=== PATIENT | female | born 1975 | race Caucasian/White ===

== ENCOUNTER 2017-02-15 14:47 | Emergency (ER) | payer BC ==
[~2017-02-15] VITALS: Ht 152.4 cm; Wt 55.3 kg
[~2017-02-15 14:47] MED LIST: IBUP-1050 PO; PRENTAB26 PO
[2017-02-15 14:52] VITALS: Ht 152.4 cm; Wt 55.3 kg
--- NOTE | 2017-02-15 17:48 | EMERGENCY ROOM VISIT NOTE ---
History First contact with patient: 16:47 Chief Complaint: ED VAG BLEEDING Stated Complaint: HEAVY BLEEDING History of Present Illness The patient is a 42 year old female who presents to the Emergency Room with complaints of heavy vaginal bleeding that started around 12 PM today. Patient states that she soaked through 8 pads in approximately 30 minutes. She stated that the bleeding seemed to slow down for a little bit, but then started to become heavy again, so she decided come to the emergency department to be evaluated. She denies any abdominal pain or cramping, back pain, fevers or chills, nausea, vomiting, diarrhea, dysuria or urinary frequency. Patient reports that she took pills to have a medical on 01/30, at which time she states she was proximally weeks . She states she has had some spotting and light bleeding since taking these pills, but has not had any heavy bleeding until today. She reports her last menstrual period was December 06. She is , with a previous miscarriage as well. She does report history of heavy periods in the past as well as ovarian cysts. She denies any chest pain, shortness of breath, palpitations, dizziness or syncope. Review of Systems A complete 10 point review of systems was reviewed with the patient with pertinent positives and negatives as per history of present illness. All else were negative. Past Medical/Surgical History Ovarian cysts Social History Smoking Status: Current Every Day Smoker Alcohol Use: none Drug Use: none Occupation Status: employed Current/Historical Medications Scheduled Citalopram Hydrobromide (Celexa), 20 MG PO DAILY Ibuprofen (Advil), 400-600 MG PO Q6H Allergies No known allergies Physical Exam Vital Signs Date Time Temp Pulse Resp B/P (MAP) Pulse Ox O2 Delivery O2 Flow Rate FiO2 02/15/17 21:32 36.7 63 18 119/59 100 02/15/17 21:06 63 18 119/59 100 Room Air 02/15/17 19:08 Room Air 100 02/15/17 19:08 73 14 119/59 100 Room Air 02/15/17 18:12 90 02/15/17 14:52 36.7 92 18 129/73 99 Room Air Physical Exam CONSTITUTIONAL: No acute distress, nontoxic-appearing. Well hydrated, well appearing and well nourished. Alert and oriented X 4 with normal affect. HEENT: Normocephalic, atraumatic. Pupils equal, round and reactive to light, EOMI. TMs normal. Pharynx normal. Moist because mom brings. NECK: Supple, full active range of motion without discomfort. RESPIRATORY: Clear to auscultation bilaterally with no wheezing, crackles, rhonchi or stridor. Equal expansion bilaterally. CARDIOVASCULAR: Regular rate and rhythm with no murmurs, rubs or gallops. Normal peripheral perfusion. No edema. GASTROINTESTINAL: Soft, nontender, nondistended. No rebound tenderness or guarding. No palpable masses or HSM. No CVA tenderness. Bowel sounds present in all quadrants. GENITOURINARY/PELVIC EXAM: VULVA: No ulcers, vesicles or atrophy. VAGINA: Clear discharge, no foul odor, few small blood clots. CERVIX: The os is closed , pink, nontender, no cervical motion tenderness, no active bleeding, no discharge. UTERUS: Normal size, nontender. ADNEXA: No masses or tenderness. A nurse was present as a drum filler during the examination. MUSCULOSKELETAL: Full range of motion of all joints without discomfort. INTEGUMENTARY: No rash or other significant dermatologic conditions noted. NEUROLOGIC: Cranial nerves II-XII grossly intact. No focal neurologic deficits noted. Medical Decision & Procedures ER Provider Diagnostic Interpretation: EXAMINATION: PELVIC ULTRASOUND (transabdominal and endovaginal scanning) CLINICAL HISTORY: Suspected retained products of conception HEAVY VAGINAL BLEEDING COMPARISON STUDY: None FINDINGS: The uterus measured 9.2 x 5.2 x 6.7 cm.. There are suspected uterine fibroids, the largest of which measures 2.5 cm. There is a heterogeneous posterior myometrium, possibly secondary to a fibroid which distorts the endometrial stripe. This makes evaluation of the endometrium difficult. I suspect but am not certain that the endometrium is of normal thickness measuring 7 mm.. The right ovary measured 24 x 12 x 23 mm. The left ovary measured 33 x 23 x 19 mm. There is a 15 mm cyst/follicle which is felt to be functional.. There is no ultrasonographic evidence of ovarian torsion. It should be noted that ovarian torsion can be present with normal Doppler ultrasonographic findings. There was no evidence of pathologic free pelvic fluid. IMPRESSION: 1. Difficult study to interpret. Heterogeneous myometrium, possibly secondary to a fibroid, which distorts the endometrium. Evaluation of the endometrium is difficult, but I suspect that the endometrium is of normal thickness measuring 7 mm. 2. Given the clinical suspicion of retained products of conception, correlation with serial quantitative beta hCGs is recommended. Laboratory Results 02/15/17 17:50 Red Blood Count 3.73, Mean Corpuscular Volume 94.4, Mean Corpuscular Hemoglobin 32.2, Mean Corpuscular Hemoglobin Concent 34.1, Mean Platelet Volume 9.2, Neutrophils (%) (Auto) 78.2, Lymphocytes (%) (Auto) 17.0, Monocytes (%) (Auto) 4.0, Eosinophils (%) (Auto) 0.4, Basophils (%) (Auto) 0.2, Neutrophils # (Auto) 7.67, Lymphocytes # (Auto) 1.67, Monocytes # (Auto) 0.39, Eosinophils # (Auto) 0.04, Basophils # (Auto) 0.02 02/15/17 17:50 Test 02/15/17 17:50 White Blood Count 9.81 K/uL (4.8-10.8) Red Blood Count 3.73 M/uL (4.2-5.4) Hemoglobin 12.0 g/dL (12.0-16.0) Hematocrit 35.2 % (37-47) Mean Corpuscular Volume 94.4 fL (80-100) Mean Corpuscular Hemoglobin 32.2 pg (25-34) Mean Corpuscular Hemoglobin Concent 34.1 g/dl (32-36) Platelet Count 342 K/uL (130-400) Mean Platelet Volume 9.2 fL (7.4-10.4) Neutrophils (%) (Auto) 78.2 % Lymphocytes (%) (Auto) 17.0 % Monocytes (%) (Auto) 4.0 % Eosinophils (%) (Auto) 0.4 % Basophils (%) (Auto) 0.2 % Neutrophils # (Auto) 7.67 K/uL (1.4-6.5) Lymphocytes # (Auto) 1.67 K/uL (1.2-3.4) Monocytes # (Auto) 0.39 K/uL (0.11-0.59) Eosinophils # (Auto) 0.04 K/uL (0-0.5) Basophils # (Auto) 0.02 K/uL (0-0.2) RDW Standard Deviation 46.7 fL (36.4-46.3) RDW Coefficient of Variation 13.5 % (11.5-14.5) Immature Granulocyte % (Auto) 0.2 % Immature Granulocyte # (Auto) 0.02 K/uL (0.00-0.02) Prothrombin Time 11.5 SECONDS (9.0-12.0) Prothromb Time International Ratio 1.1 (0.9-1.1) Activated Partial Thromboplast Time 28.2 SECONDS (21.0-31.0) Partial Thromboplastin Ratio 1.1 Urine Color YELLOW Urine Appearance CLEAR (CLEAR) Urine pH 5.0 (4.5-7.5) Urine Specific [place] 1.032 (1.000-1.030) Urine Protein NEG (NEG) Urine Glucose (UA) NEG (NEG) Urine Ketones TRACE (NEG) Urine Occult Blood 3+ (NEG) Urine Nitrite NEG (NEG) Urine Bilirubin NEG (NEG) Urine Urobilinogen NEG (NEG) Urine Leukocyte Esterase NEG (NEG) Urine WBC (Auto) 1-5 /hpf (0-5) Urine RBC (Auto) >30 /hpf (0-4) Urine Hyaline Casts (Auto) 5-10 /lpf (0-5) Urine Epithelial Cells (Auto) >30 /lpf (0-5) Urine Bacteria (Auto) NEG (NEG) Anion Gap 5.0 mmol/L (3-11) Est Creatinine Clear Calc Drug Dose 119.2 ml/min Estimated GFR () 139.2 Estimated GFR (Non- 120.1 BUN/Creatinine Ratio 24.7 (10-20) Calcium Level 8.5 mg/dl (8.5-10.1) Total Bilirubin 0.3 mg/dl (0.2-1) Aspartate Amino Transf (AST/SGOT) 12 U/L (15-37) Alanine Aminotransferase (ALT/SGPT) 17 U/L (12-78) Alkaline Phosphatase 60 U/L (45-117) Total Protein 7.2 gm/dl (6.4-8.2) Albumin 3.9 gm/dl (3.4-5.0) Globulin 3.3 gm/dl (2.5-4.0) Albumin/Globulin Ratio 1.2 (0.9-2) Human Chorionic Gonadotropin, Quant 532 mIU/mL Medical Decision CC: Patient presenting with complaint of vaginal bleeding Interpretation of Labs: No leukocytosis, no anemia, no significant electrolyte abnormalities, normal renal function. Beta hCG Quant is elevated at 532. UA appears contaminated. Rh+. Differential Diagnosis: Includes, but not limited to dysfunctional uterine bleeding, return of menses, retained products of conception, incomplete miscarriage, ovarian cyst, anemia, ectopic , among others. Medication Reconciliation: I attest that I have personally reviewed the patient' s current medication list. Vital signs review: I reviewed the patient's vital signs and interpret them as follows: T: Afebrile; BP: Normotensive; HR: Within normal limits; RR: Within normal limits; Pulse Ox: Within normal limits on room air. Blood pressure screening: The patient was found to have normal blood pressure on screening and does not require follow-up for repeat blood pressure check. Summary: Patient was evaluated at bedside, history and physical exam performed. Patient is alert and oriented, no acute distress and nontoxic appearing, resting comfortably in the stretcher. Patient does not appear acutely anemic. She appears well-hydrated. There is no abdominal tenderness to palpation. Orders were placed at bedside for labs, UA, beta Quant, pelvic ultrasound to evaluate for retained products. Patient discussed with Dr. Saavedra, who agrees with my assessment and plan. Labs reviewed as above, noting elevated beta Quant hCG. No leukocytosis or anemia. She is Rh Positive. Ultrasound imaging reviewed not definitive for retained products, recommending to trend Quant. Pelvic exam revealed no tenderness, cervical os is closed, no discharge from the cervix, and no active bleeding with few small clots noted in the vagina. I discussed all results with the patient. She states she has a tablet making machine operator that she can follow up with, and she will call them tomorrow to establish follow -up appointment. Patient reassessed multiple times throughout ED stay, she continues to be well- appearing, she has not had any fevers or other abnormal vital signs, or any other concerning findings to suggest infection at this time. Patient was comfortable with discharge. She was aware of plans for close follow -up, to have a repeat beta hCG Quant test in the next 2-3 days. Patient was also given strict return precautions should her symptoms change or worsen in any way, she verbalized understanding. Patient was discharged home in stable condition and ambulatory. Head Trauma GCS Score: 15 Medication Reconcilliation Current Medication List: was personally reviewed by me Blood Pressure Screening Patient's blood pressure: Normal blood pressure Impression Primary Impression: Abnormal vaginal bleeding Departure Information Dispostion Home / Self-Care Condition GOOD Referrals Meche Rivero M.D. Patient Instructions ED Bleed Irregular Vaginal, ED Miscarriage Incom, [facility] Additional Instructions Please follow-up with your women's health clinic or OPHTHALMOLOGIST office in the next 2 days to have repeat blood test (beta hCG Quant). Call to set up an appointment. Drink plenty of fluids to stay well hydrated. Please return to the ER for any worsening symptoms, including abdominal or back pain, persistent heavy bleeding (soaking through 2 or more pads/tampons per hour ), fever/chills/feeling ill, foul-smelling discharge from your vagina, severe dizziness or passing out, or any other concerns. Work Instructions Return To Work: 1 day
[2017-02-15 18:07] LABS: URINE APPEARANCE CLEAR (CLEAR); URINE BILIRUBIN NEG (NEG); URINE COLOR YELLOW; URINE EPITHELIAL CELL AUTO >30 /lpf (0-5); URINE NITRITE NEG (NEG); URINE SPECIFIC GRAVITY 1.032 (1.000-1.030); UROBILINOGEN NEG (NEG)
[2017-02-15 18:08] LABS: MANUAL MICROSCOPIC REQUIRED? NO; REVIEW REQ? NO
[2017-02-15 18:19] LABS: BASO % 0.2 %; BASO ABS # 0.02 K/uL (0-0.2); COMPLETE YES; EOS % 0.4 %; HEMATOCRIT 35.2 % (37-47); IG% 0.2 %; LYMPH ABS # 1.67 K/uL (1.2-3.4); MEAN CELL VOLUME 94.4 fL (80-100); MEAN CORPUSCULAR HEMOGLOBIN 32.2 pg (25-34); MEAN CORPUSCULAR HGB CONC 34.1 g/dl (32-36); MEAN PLATELET VOLUME 9.2 fL (7.4-10.4); NEUT % 78.2 %; PLATELET COUNT 342 K/uL (130-400); RED BLOOD COUNT 3.73 M/uL (4.2-5.4); WHITE BLOOD COUNT 9.81 K/uL (4.8-10.8)
[2017-02-15 18:27] LABS: INR 1.1 (0.9-1.1); PARTIAL THROMBOPLASTIN RATIO 1.1; PROTHROMBIN TIME (PATIENT) 11.5 SECONDS (9.0-12.0)
[2017-02-15 18:28] LABS: BUN/CREATININE RATIO 24.7 (10-20); CALCIUM 8.5 mg/dl (8.5-10.1); CREATININE 0.47 mg/dl (0.60-1.20); POTASSIUM 3.3 mmol/L (3.5-5.1)
[2017-02-15 18:31] LABS: ALB/GLOB RATIO 1.2 (0.9-2)
[2017-02-15] MEDS ORDERED: IBUP-1050 PO (19:11)
[2017-02-15] MEDS ORDERED: CITA20TA9 PO (19:11)
--- NOTE | 2017-02-15 19:21 | DIAGNOSTIC IMAGING REPORT ---
EXAMINATION: PELVIC ULTRASOUND (transabdominal and endovaginal scanning) CLINICAL HISTORY: Suspected retained products of conception HEAVY VAGINAL BLEEDING COMPARISON STUDY: None FINDINGS: The uterus measured 9.2 x 5.2 x 6.7 cm.. There are suspected uterine fibroids, the largest of which measures 2.5 cm. There is a heterogeneous posterior myometrium, possibly secondary to a fibroid which distorts the endometrial stripe. This makes evaluation of the endometrium difficult. I suspect but am not certain that the endometrium is of normal thickness measuring 7 mm.. The right ovary measured 24 x 12 x 23 mm. The left ovary measured 33 x 23 x 19 mm. There is a 15 mm cyst/follicle which is felt to be functional.. There is no ultrasonographic evidence of ovarian torsion. It should be noted that ovarian torsion can be present with normal Doppler ultrasonographic findings. There was no evidence of pathologic free pelvic fluid. IMPRESSION: 1. Difficult study to interpret. Heterogeneous myometrium, possibly secondary to a fibroid, which distorts the endometrium. Evaluation of the endometrium is difficult, but I suspect that the endometrium is of normal thickness measuring 7 mm. 2. Given the clinical suspicion of retained products of conception, correlation with serial quantitative beta hCGs is recommended. Electronically signed by: Juan Ramon Paredes M.D. 02/15/2017 7:20 PM Dictated Date/Time: 02/15/2017 7:12 PM
[2017-02-15 21:32] VITALS: BP 119/59; PULSE 63; TEMP 36.7; O2SAT 100
== END 2017-02-15 21:32 | disposition home or self-care (01) ==
LOC: C.EDB 14:48
DX: N93.9 Abnormal uterine and vaginal bleeding, unspecified (principal); N83.209 Unspecified ovarian cyst, unspecified side; F17.200 Nicotine dependence, unspecified, uncomplicated; Z79.899 Other long term (current) drug therapy

== ENCOUNTER → 2017-03-02 | Outpatient (CLI) | payer BC ==
[~2017-03-02] MED LIST changes: +CITA20TA9 PO; -PRENTAB26 PO
== END | disposition home or self-care (01) ==
LOC: C.LAB1850 10:33
PROVIDERS: ATTEND Physician Assistant
DX: Z33.2 Encounter for elective termination of pregnancy (principal)

== ENCOUNTER → 2017-03-10 | Outpatient (CLI) | payer BC | END | disposition home or self-care (01) | LOC: C.LAB1850 13:30 | PROVIDERS: ATTEND Physician Assistant | DX: Z33.2 Encounter for elective termination of pregnancy (principal); Z3A.00 Weeks of gestation of pregnancy not specified ==